=== PATIENT | female | born 1960 | race Caucasian/White ===

== ENCOUNTER 2018-01-18 23:45 | Emergency (ER) | payer OTHER ==
[2018-01-19] MEDS ORDERED: HYDROcodone/APAP 5-325MG 1 EACH TAB PO STA (01:01)
[2018-01-19 01:14] LABS: Glucose,Whole Blood 237 mg/dL (75-99)
--- NOTE | 2018-01-19 01:21 | XR ---
EXAMINATION TYPE: XR elbow complete LT DATE OF EXAM: 01/19/2018 COMPARISON: NONE HISTORY: Fall TECHNIQUE: 3 views FINDINGS: There is anterior and posterior fat pad sign indicating a joint effusion. I see no displace d fracture. Joint spaces are normal. IMPRESSION: Elbow joint effusion. No displaced fracture seen.
--- NOTE | 2018-01-19 02:01 | ED ---
Fall HPI - General Chief Complaint: Fall Stated Complaint: Fall-Shoulder Injury Time Seen by Provider: 01/19/18 00:21 Source: patient Mode of arrival: ambulatory - History of Present Illness Initial Comments: 58-year-old female patient presents to the emergency department today for complaints of left elbow pain after experiencing a fall at home. Patient reports that she was taking her dog out when the dog spotted a creature in the [place] and jumped forward, states that it pulled her forward and she fell landing on her chest. She states that she did have the wind knocked out of her for short time, states that she rolled onto her side to breathe easier and passed out for an unknown amount of time. Patient states that she didn't feel like it was very long. She denies hitting her head. She denies any current chest pain, shortness of breath, nausea, or vomiting. She denies any headache, dizziness, weakness, blurred vision, or double vision. States that she has been ill over the last 3 days with vomiting and diarrhea. States that symptoms have resolved. Her only concern at this time is the pain in her left elbow. States that she is unable to fully extend the arm without significant pain. Patient denies any neck pain, back pain, abdominal pain, or difficulties with bowel movements or urination. - Related Data Home Medications Medication Instructions Recorded Confirmed Etanercept [Enbrel] 50 mg SQ BENITEZ 11/17/15 07/27/16 Insulin Glargine,Hum.rec.anlog 14 unit SQ QAM 11/17/15 07/27/16 [Lantus Solostar] Lisinopril [Zestril] 20 mg PO BID 11/17/15 07/27/16 Metoprolol Tartrate [Lopressor] 100 mg PO BID 11/17/15 07/27/16 Repaglinide [Prandin] 2 mg PO AC-LUNCH 11/17/15 07/27/16 Insulin Glargine,Hum.rec.anlog 18 unit SQ HS 07/27/16 07/27/16 [Lantus Solostar] Levothyroxine Sodium [Synthroid] 100 mcg PO DAILY 07/27/16 07/27/16 Naproxen Sodium [Aleve] 440 mg PO DAILY PRN 07/27/16 07/27/16 Repaglinide [Prandin] 1 mg PO BID 07/27/16 07/27/16 Saxagliptin HCl/Metformin HCl 1 tab PO DAILY 07/27/16 07/27/16 [Kombiglyze Xr 5-1,000 mg Tab] Previous Rx's Medication Instructions Recorded Hydrocodone/Acetaminophen [[place] 1 tab PO Q6HR PRN #12 tab 01/19/18 5-325] Allergies Allergy/AdvReac Type Severity Reaction Status Date / Time Iodinated Contrast- Oral and Allergy Dyspnea Verified 01/19/18 00:05 IV Dye [Iodinated Contrast Media - IV Dye] shellfish derived [Shellfish] Allergy Dyspnea Verified 01/19/18 00:05 Sulfa (Sulfonamide Allergy Rash/Hives Verified 01/19/18 00:05 Antibiotics) levofloxacin [From Levaquin] AdvReac Tendon pain Verified 01/19/18 00:05 Review of Systems ROS Statement: Those systems with pertinent positive or pertinent negative responses have been documented in the HPI. ROS Other: All systems not noted in ROS Statement are negative. Past Medical History Past Medical History: Asthma, Diabetes Mellitus, Fibromyalgia, Hypertension, Pneumonia, Renal Disease, Rheumatoid Arthritis (RA) Additional Past Medical History / Comment(s): IDDM type II, hypothyroid, slight heart enlargement, murmur, nephrolithiasis, UTI in past. History of Any Multi-Drug Resistant Organisms: None Reported Past Surgical History: Cholecystectomy, Hysterectomy Additional Past Surgical History / Comment(s): L salpingo-oophorectomy, hysterectomy later with R salpingo-oophorectomy, parathyroidectomy Past Anesthesia/Blood Transfusion Reactions: Postoperative Nausea & Vomiting ( PONV) Past Psychological History: Anxiety Smoking Status: Never smoker Past Alcohol Use History: None Reported Past Drug Use History: None Reported - Past Family History Brother(s) Family Medical History: Myocardial Infarction ([place]) Additional Family Medical History / Comment(s): Brother of a [place] at the age of 54 yrs. Sister(s) Family Medical History: Myocardial Infarction ([place]) Additional Family Medical History / Comment(s): Sister had a [place] at the age of 54 yrs. Father Family Medical History: COPD Additional Family Medical History / Comment(s): Father of emphysema at the age of 60 yrs. Mother Family Medical History: Cancer Additional Family Medical History / Comment(s): Mother of a cancerous brain tumor at the age of 64 yrs. General Exam Limitations: no limitations General appearance: alert, in no apparent distress, other (This is a well- developed, obese female patient in no acute distress. Vital signs upon presentation are temperature 99.5F, pulse 80, respirations 20, blood pressure 144/74, pulse ox 99% on room air) Head exam: Present: atraumatic, normocephalic, normal inspection Eye exam: Present: normal appearance, PERRL, EOMI. Absent: scleral icterus, conjunctival injection, periorbital swelling ENT exam: Present: normal exam, normal oropharynx, mucous membranes moist Neck exam: Present: normal inspection, full ROM, other (Nontender, no step-off, no deformity to firm midline palpation of the posterior cervical spine. Full range of motion without pain or limitation.). Absent: tenderness, meningismus, lymphadenopathy Respiratory exam: Present: normal lung sounds bilaterally. Absent: respiratory distress, wheezes, rales, rhonchi, stridor, chest wall tenderness Cardiovascular Exam: Present: regular rate, normal rhythm, normal heart sounds. Absent: systolic murmur, diastolic murmur, rubs, gallop, clicks GI/Abdominal exam: Present: soft, normal bowel sounds. Absent: distended, tenderness, guarding, rebound, rigid Extremities exam: Present: tenderness (Tenderness over the left elbow), normal capillary refill, other (Swelling surrounding the left elbow. Patient is unable to pronate or supinate without significant pain.). Absent: normal inspection, full ROM (Patient unable to pronate or supinate without significant pain), pedal edema, joint swelling, calf tenderness Back exam: Present: normal inspection, other (Nontender, no step-off, no deformity to firm midline palpation of the thoracic and lumbar vertebrae. Full range of motion without pain or limitation.). Absent: tenderness, vertebral tenderness Neurological exam: Present: alert, oriented X3, CN II-XII intact Psychiatric exam: Present: normal affect, normal mood Skin exam: Present: warm, dry, intact, normal color. Absent: rash Course Vital Signs 01/18/18 01/19/18 23:59 02:14 Temperature 99.5 F 98.3 F Pulse Rate 80 73 Respiratory 20 18 Rate Blood Pressure 144/74 105/66 O2 Sat by Pulse 99 96 Oximetry Medical Decision Making - Medical Decision Making 58-year-old female patient presents to the emergency department today for evaluation of left elbow pain after a fall. Patient also reported having a syncopal episode after the fall. Blood sugar here was 237, patient is a type II diabetic. EKG was obtained and showed a normal sinus rhythm with no ectopy or ST elevation or depression. Patient is neurologically intact. Patient reports that she is feeling well other than her elbow pain. X-ray of the left elbow shows posterior and anterior fat pad sign. There is no obvious fracture. I did discuss results with the patient and informed her this most likely a occult fracture of the left elbow. We did place her in a posterior splint and give her a sling. I gave her [place] for pain control per she is instructed to follow-up with orthopedics as soon as possible. She is instructed to return here immediately for any new, worsening, or concerning symptoms. She verbalizes understanding and agrees with this plan. - Lab Data Lab Results 01/19/18 Range/Units 01:10 POC Glucose (mg/dL) 237 H (75-99) mg/dL POC Glu [employer] Machine ID Aurelia Escalona - EKG Data -: EKG Interpreted by Me EKG Comments: EKG obtained at was normal sinus rhythm with a ventricular rate of 69, AL interval 168, QR gnosticist 92, QT 406, QTC 435. No evidence of ectopy, ST elevation or depression. - Radiology Data Radiology results: report reviewed, image reviewed 3 views of left elbow show anterior and posterior fat pad signs indicating a joint effusion. I see no displaced fracture. Joint spaces are normal. Impression by Dr. Knox shows elbow joint effusion. No displaced fracture seen. Disposition Clinical Impression: Occult fracture of left elbow Disposition: HOME SELF-CARE Condition: Good Instructions: Elbow Fracture (ED), Splint Care (ED) Additional Instructions: Use sling for comfort. Ice to the area 20 minutes at a time at least 4 times daily. Follow-up with orthopedics as as possible, leave splint in place until follow up. Do not get splint wet. Take medications as directed. Return here immediately for any new, worsening, or concerning symptoms. Prescriptions: Hydrocodone/Acetaminophen [[place] 5-325] 1 tab PO Q6HR PRN #12 tab PRN Reason: Pain Referrals: Sunny Singh MD [Primary Care Provider] - 1-2 days Makim,Mukund, MD [STAFF PHYSICIAN] - 1-2 days Time of Disposition: 02:00
[2018-01-19 02:17] VITALS: BP 105/66; PULSE 73; RESP 18; TEMP 98.3
== END 2018-01-19 02:16 | disposition home or self-care (01) ==
LOC: EC 23:45
DX: S42.402A Unspecified fracture of lower end of left humerus, initial encounter for closed fracture (principal); E11.9 Type 2 diabetes mellitus without complications; I10 Essential (primary) hypertension; M06.9 Rheumatoid arthritis, unspecified; E03.9 Hypothyroidism, unspecified; E66.9 Obesity, unspecified; Z91.041 Radiographic dye allergy status; Z68.34 Body mass index [BMI] 34.0-34.9, adult; Z88.2 Allergy status to sulfonamides; Z88.1 Allergy status to other antibiotic agents; Z91.013 Allergy to seafood; Z79.4 Long term (current) use of insulin; Z79.84 Long term (current) use of oral hypoglycemic drugs; Z79.899 Other long term (current) drug therapy; W54.1XXA Struck by dog, initial encounter; Y92.009 Unspecified place in unspecified non-institutional (private) residence as the place of occurrence of the external cause
CPT/HCPCS: 29105; 36415; 93005; 99284

== ENCOUNTER 2020-09-01 21:43 | Emergency (ER) | payer BC, OTHER ==
[2020-09-01 21:51] VITALS: BP 152/81; PULSE 91; RESP 20; TEMP 100
[2020-09-01] MEDS ORDERED: LIDOCAINE 5% PATCH TOPICAL STA ×2 (22:21→23:13)
[2020-09-01] MEDS ORDERED: KETOROLAC 15 MG/ML 1 ML VIAL IM STA (22:21)
--- NOTE | 2020-09-01 22:57 | XR ---
EXAMINATION TYPE: XR ribs RT w pa chest xray DATE OF EXAM: 09/01/2020 COMPARISON: Chest x-ray 07/27/2016 HISTORY: Right rib pain TECHNIQUE: 5 views FINDINGS: Heart and mediastinum are normal. Lungs are clear. There is no pleural effusion or pneumoth orax. I see no evidence of a rib fracture. IMPRESSION: No active cardiopulmonary disease. Normal right ribs. No change.
--- NOTE | 2020-09-01 23:14 | ED ---
General Adult HPI - General Chief complaint: Chest Pain Stated complaint: [facility] Rib Injury Time Seen by Provider: 09/01/20 21:59 Source: patient Mode of arrival: ambulatory Limitations: no limitations - History of Present Illness Initial comments: 60-year-old female patient presents to the emergency department today for evaluation of right-sided rib pain. Patient states 3 days ago at work she was bent forward over a table when she felt a popping sensation in the right ribs. Patient states she did have mild discomfort at that time. Patient states that she reinjured it yesterday while bending over to pick something up off the floor and when she laid down in bed tonight the pain got significantly worse. She denies any radiation of the pain through to her back. States it does hurt worse when she takes a deep breath or moves. If she denies any nausea, vomiting, constipation, diarrhea. Denies any dizziness or weakness. States she has been taking Aleve. Patient denies any headache, neck pain, back pain, shortness of breath, dizziness, weakness, abdominal pain, or difficulties with bowel movements or urination. - Related Data Home Medications Medication Instructions Recorded Confirmed Etanercept [Enbrel] 50 mg SQ BENITEZ 11/17/15 07/27/16 Insulin Glargine,Hum.rec.anlog 14 unit SQ QAM 11/17/15 07/27/16 [Lantus Solostar] Metoprolol Tartrate [Lopressor] 100 mg PO BID 11/17/15 07/27/16 Repaglinide [Prandin] 2 mg PO AC-LUNCH 11/17/15 07/27/16 lisinopriL [Zestril] 20 mg PO BID 11/17/15 07/27/16 Insulin Glargine,Hum.rec.anlog 18 unit SQ HS 07/27/16 07/27/16 [Lantus Solostar] Levothyroxine Sodium [Synthroid] 100 mcg PO DAILY 07/27/16 07/27/16 Naproxen Sodium [Aleve] 440 mg PO DAILY PRN 07/27/16 07/27/16 Repaglinide [Prandin] 1 mg PO BID 07/27/16 07/27/16 Saxagliptin HCl/Metformin HCl 1 tab PO DAILY 07/27/16 07/27/16 [Kombiglyze Xr 5-1,000 mg Tab] Previous Rx's Medication Instructions Recorded Hydrocodone/Acetaminophen [[place] 1 tab PO Q6HR PRN #12 tab 01/19/18 5-325] Allergies Allergy/AdvReac Type Severity Reaction Status Date / Time Iodinated Contrast Media Allergy Dyspnea Verified 09/01/20 21:51 [Iodinated Contrast Media - IV Dye] shellfish derived [Shellfish] Allergy Dyspnea Verified 09/01/20 21:51 Sulfa (Sulfonamide Allergy Rash/Hives Verified 09/01/20 21:51 Antibiotics) levofloxacin [From Levaquin] AdvReac Tendon pain Verified 09/01/20 21:51 Review of Systems ROS Statement: Those systems with pertinent positive or pertinent negative responses have been documented in the HPI. ROS Other: All systems not noted in ROS Statement are negative. Past Medical History Past Medical History: Asthma, Diabetes Mellitus, Fibromyalgia, Hypertension, Pneumonia, Renal Disease, Rheumatoid Arthritis (RA) Additional Past Medical History / Comment(s): IDDM type II, hypothyroid, slight heart enlargement, murmur, nephrolithiasis, UTI in past. History of Any Multi-Drug Resistant Organisms: None Reported Past Surgical History: Cholecystectomy, Hysterectomy Additional Past Surgical History / Comment(s): L salpingo-oophorectomy, hysterectomy later with R salpingo-oophorectomy, parathyroidectomy Past Anesthesia/Blood Transfusion Reactions: Postoperative Nausea & Vomiting (PONV) Past Psychological History: Anxiety Smoking Status: Never smoker Past Alcohol Use History: None Reported Past Drug Use History: None Reported - Past Family History Brother(s) Family Medical History: Myocardial Infarction ([place]) Additional Family Medical History / Comment(s): Brother of a [place] at the age of 54 yrs. Sister(s) Family Medical History: Myocardial Infarction ([place]) Additional Family Medical History / Comment(s): Sister had a [place] at the age of 54 yrs. Father Family Medical History: COPD Additional Family Medical History / Comment(s): Father of emphysema at the age of 60 yrs. Mother Family Medical History: Cancer Additional Family Medical History / Comment(s): Mother of a cancerous brain tumor at the age of 64 yrs. General Exam Limitations: no limitations General appearance: alert, in no apparent distress, other (Physical well- developed, well-nourished adult female patient in no acute distress. Vital signs upon presentation are temperature 100.0F. Pulse 91, respirations 20, blood pressure 152/81, pulse ox 95% on room air.) Respiratory exam: Present: normal lung sounds bilaterally, chest wall tenderness (Right anterior rib tenderness over the midclavicular region extending to the right midaxillary region.). Absent: respiratory distress, wheezes, rales, rhonchi, stridor Cardiovascular Exam: Present: regular rate, normal rhythm, normal heart sounds. Absent: systolic murmur, diastolic murmur, rubs, gallop, clicks GI/Abdominal exam: Present: soft, normal bowel sounds. Absent: distended, tenderness, guarding, rebound, rigid Neurological exam: Present: alert, oriented X3, CN II-XII intact Psychiatric exam: Present: normal affect, normal mood Skin exam: Present: warm, dry, intact, normal color. Absent: rash Course Vital Signs 09/01/20 21:48 Temperature 100 F H Pulse Rate 91 Respiratory 20 Rate Blood Pressure 152/81 O2 Sat by Pulse 95 Oximetry Medical Decision Making - Medical Decision Making 60-year-old female patient presents to the emergency department today for evaluation of right rib pain after an injury a few days ago at work. Physical examination did reveal tenderness over the right anterior ribs near the midaxillary line extending to the midclavicular line. There is no evidence for surface injury over the skin. No abdominal tenderness. Chest x-ray with right rib series was obtained and was negative for any acute fracture or abnormalities. We did discuss muscle strain as a cause for her symptoms. She is given Lidoderm patch. She is instructed to continue home medications for pain. She is reluctant to have any new prescriptions for pain. She is instructed to follow-up with her primary care physician for recheck in 1-2 days. Return parameters were discussed in detail patient verbalizes understanding and agrees with this plan. - Radiology Data Radiology results: report reviewed, image reviewed Disposition Clinical Impression: Rib injury Disposition: HOME SELF-CARE Condition: Good Instructions (If sedation given, give patient instructions): Muscle Strain (ED), Costochondritis (ED) Additional Instructions: Apply warm compresses to the area. Use Lidoderm patch as needed. Continue Aleve. Perform gentle stretching exercises. Follow-up with your primary care physician for recheck in 1-2 days. Return to the emergency department immediately for any new, worsening, or concerning symptoms. Is patient prescribed a controlled substance at d/c from ED?: No Referrals: Sunny Singh MD [Primary Care Provider] - 1-2 days Time of Disposition: 23:14
== END 2020-09-01 23:30 | disposition home or self-care (01) ==
LOC: EC 21:43
DX: S29.9XXA Unspecified injury of thorax, initial encounter (principal); I10 Essential (primary) hypertension; E11.9 Type 2 diabetes mellitus without complications; M06.9 Rheumatoid arthritis, unspecified; E03.9 Hypothyroidism, unspecified; Z79.84 Long term (current) use of oral hypoglycemic drugs; Z79.899 Other long term (current) drug therapy; Z79.4 Long term (current) use of insulin; Z79.890 Hormone replacement therapy; Z91.041 Radiographic dye allergy status; Z91.013 Allergy to seafood; Z88.2 Allergy status to sulfonamides; Z88.1 Allergy status to other antibiotic agents; X50.1XXA Overexertion from prolonged static or awkward postures, initial encounter; Y92.69 Other specified industrial and construction area as the place of occurrence of the external cause; Y99.0 Civilian activity done for income or pay
CPT/HCPCS: 71101; 99283; 96372; J1885

== ENCOUNTER → 2020-09-15 | Outpatient (CLI) | payer BC ==
[2020-09-15 13:33] LABS: Basophils # (A) 0.1 k/uL (0-0.2); Basophils % (A) 0 %; Eosinophils # (A) 0.4 k/uL (0-0.7); Eosinophils % (A) 4 %; HCT 46.2 % (34.0-46.0); HGB 14.8 gm/dL (11.4-16.0); Lymphocytes # (A) 2.1 k/uL (1.0-4.8); Lymphocytes % (A) 19 %; MCH 29.1 pg (25.0-35.0); Mean Platelet Volume 7.6; Monocytes # (A) 0.5 k/uL (0-1.0); Monocytes % (A) 4 %; Neutrophils # (A) 7.8 k/uL (1.3-7.7); Neutrophils % (A) 72 %; Platelet Count 235 k/uL (150-450); RBC 5.08 m/uL (3.80-5.40); RDW 13.8 % (11.5-15.5); WBC 10.9 k/uL (3.8-10.6)
[2020-09-15 18:32] LABS: Protein, Total 7.2 g/dL (6.2-8.2)
[2020-09-15 19:05] LABS: T4, Free (Free Thyroxine) 1.2 ng/dL (0.80-1.80)
[2020-09-15 19:22] LABS: African American GFR (CKD) 51.6 (60.0-200.0); Albumin 4.6 g/dL (3.80-4.90); Albumin/Globulin Ratio 1.77 (1.60-3.17); Anion Gap 10.8 mmol/L (4.00-12.00); BUN/Creat Ratio 19.23 Ratio (12.00-20.00); C Reactive Protein 0.4 mg/dL (0.0-0.8); Calcium 9.7 mg/dL (8.7-10.3); Carbon Dioxide 26.2 mmol/L (21.6-31.8); Chol/HDL Ratio 2.95; Folate, Serum 13.6 ng/mL; Globulin 2.6 g/dL (1.6-3.3); LDL Cholesterol,Calculated 23.8 mg/dL (0.0-131.0); Non-African American GFR(CKD) 44.6 (60.0-200.0); Potassium 4.7 mmol/L (3.5-5.5); Total Bilirubin 0.7 mg/dL (0.3-1.2); Total Protein 7.2 g/dL (6.2-8.2); VLDL Calculation 48.2 mg/dL (5.00-40.00)
[2020-09-16 15:07] LABS: Albumin 3.89 g/dL (3.80-4.90); Gamma Globulin 1.04 g/dL (0.70-1.50)
== END | disposition home or self-care (01) ==
LOC: LABWHC1 12:52
PROVIDERS: ATTEND Internal Medicine Endocrinology, Diabetes & Metabolism
DX: M06.4 Inflammatory polyarthropathy (principal); E11.65 Type 2 diabetes mellitus with hyperglycemia; E03.9 Hypothyroidism, unspecified; E78.49 Other hyperlipidemia
CPT/HCPCS: 36415; 80053; 80061; 82306; 82607; 82746; 83036; 84165; 84439; 84443; 85025; 86140; 86480

== ENCOUNTER → 2021-04-01 | Outpatient (CLI) | payer BC ==
[2021-04-01 15:25] LABS: Appearance,Urine Clear (Clear); Bacteria,Urine Rare /hpf; Bilirubin,Urine Negative (Negative); Blood,Urine Negative (Negative); Color,Urine Yellow; Glucose,Urine (UA) Trace (Negative); Ketones,Urine Negative (Negative); Leukocyte Esterase,Urine Small (Negative); Mucus,Urine Rare /hpf; Nitrite,Urine Negative (Negative); PH, Urine 5.5 (5.0-8.0); Protein,Urine 2+ (Negative); Specific Gravity,Urine 1.024 (1.001-1.035); Squamous Epithelial Cell,Urine 1 /hpf (0-4); Urobilinogen,Urine <2.0 mg/dL (<2.0); WBC,Urine 2 /hpf (0-5)
[2021-04-02 01:13] LABS: Basophils # (A) 0.08 X 10*3/uL (0.00-0.10); Basophils % (A) 0.8 %; Eosinophils # (A) 0.37 X 10*3/uL (0.04-0.35); Eosinophils % (A) 3.6 %; HCT 45.1 % (37.2-46.3); HGB 14.3 g/dL (12.0-15.0); Lymphocytes # (A) 3.13 X 10*3/uL (0.90-5.00); Lymphocytes % (A) 30.4 %; MCHC 31.7 g/dL (32.0-37.0); MCV 91.5 fL (80.0-97.0); Mean Platelet Volume 10.9 fL (9.5-12.2); Monocytes # (A) 0.64 X 10*3/uL (0.20-1.00); Monocytes % (A) 6.2 %; Neutrophils # (A) 6.04 X 10*3/uL (1.80-7.70); Neutrophils % (A) 58.6 %; Platelet Count 292 X 10*3/uL (140-440); RBC 4.93 X 10*6/uL (4.10-5.20); RDW 13.5 % (11.5-14.5)
[2021-04-02 02:01] LABS: Hemoglobin A1C 8.1 % (4.0-6.0)
[2021-04-02 02:02] LABS: Erythrocyte Sedimentation Rate 7 mm/Hr (0-30)
[2021-04-02 23:55] LABS: ALT 58 U/L (8-44); AST 59 U/L (13-35); African American GFR (CKD) 92.2 (60.0-200.0); Albumin/Globulin Ratio 2.04 (1.60-3.17); Alkaline Phosphatase 53 U/L (41-126); C Reactive Protein <0.4 mg/dL (0.0-0.8); Calcium 8.7 mg/dL (8.7-10.3); Carbon Dioxide 15.8 mmol/L (21.6-31.8); Chloride 105 mmol/L (96-109); Chol/HDL Ratio 3.59; Cholesterol 115 mg/dL (0-200); Globulin 2.4 g/dL (1.6-3.3); Glucose 286 mg/dL (70-110); LDL Cholesterol,Calculated 19.2 mg/dL (0.0-131.0); Non-African American GFR(CKD) 79.6 (60.0-200.0); Potassium 4.6 mmol/L (3.5-5.5); Sodium 145 mmol/L (135-145); Total Bilirubin 0.6 mg/dL (0.3-1.2); Total Protein 7.3 g/dL (6.2-8.2)
== END | disposition home or self-care (01) ==
LOC: LABWHC1 14:45
PROVIDERS: ATTEND Internal Medicine Rheumatology
DX: E78.5 Hyperlipidemia, unspecified (principal); E11.65 Type 2 diabetes mellitus with hyperglycemia; I10 Essential (primary) hypertension; M06.09 Rheumatoid arthritis without rheumatoid factor, multiple sites
CPT/HCPCS: 36415; 80053; 80061; 81001; 82306; 83036; 84439; 84443; 85025; 85652; 86140; 87086

== ENCOUNTER → 2022-05-10 | Outpatient (CLI) | payer BC ==
--- NOTE | 2022-05-10 10:47 | US ---
EXAMINATION TYPE: US liver DATE OF EXAM: 05/10/2022 COMPARISON: NONE CLINICAL HISTORY: R74.8 ELEVATED LIVER ENZYMES. Cholecystectomy in 1999. EXAM MEASUREMENTS: Liver Length: 18.2 cm Gallbladder Wall: Surgically absent cm CBD: 0.53 cm Right Kidney: 13.1 x 6.0 x 6.0 cm Pancreas: partially obscured by bowel gas Liver: Increased attenuation, decreased visualization of vessels suggestive of fatty infiltrate Gallbladder: Surgically absent Evidence for sonographic Roche's sign: No CBD: wnl Right Kidney: Soft tissue area seen in mid renal sinus representing probable normal tissue, however, mass can not be excluded by ultrasound. IMPRESSION: 1. Probable hepatic steatosis. 2. I cannot exclude right renal sinus mass. Consider CT correlation.
[2022-05-10 17:53] LABS: Basophils # (A) 0.08 X 10*3/uL (0.00-0.10); Basophils % (A) 0.7 %; Eosinophils # (A) 0.44 X 10*3/uL (0.04-0.35); Eosinophils % (A) 3.7 %; HCT 48.1 % (37.2-46.3); Immature Grans, Automated 0.3 %; Lymphocytes # (A) 2.94 X 10*3/uL (0.90-5.00); Lymphocytes % (A) 24.5 %; MCH 28.2 pg (27.0-32.0); MCHC 31.2 g/dL (32.0-37.0); MCV 90.4 fL (80.0-97.0); Mean Platelet Volume 10.4 fL (9.5-12.2); Monocytes # (A) 0.59 X 10*3/uL (0.20-1.00); Monocytes % (A) 4.9 %; NRBC Per 100 WBC 0 /100 WBCS (0.0-0.0); Neutrophils % (A) 65.9 %; Platelet Count 326 X 10*3/uL (140-440); RBC 5.32 X 10*6/uL (4.10-5.20); RDW 13.3 % (11.5-14.5); WBC 11.99 X 10*3/uL (4.50-10.00)
[2022-05-10 18:20] LABS: Hepatitis A Antibody IgM Nonreactive (Nonreactive); Hepatitis B Core IgM Nonreactive (Nonreactive); Hepatitis B Surface Antigen Nonreactive (Nonreactive); Hepatitis C IgG Antibody Nonreactive (Nonreactive)
[2022-05-10 19:21] LABS: ALT 51 U/L (8-44); AST 50 U/L (13-35); Albumin 4.5 g/dL (3.8-4.9); Albumin/Globulin Ratio 1.44 (1.60-3.17); Alkaline Phosphatase 55 U/L (41-126); BUN/Creat Ratio 21.82 Ratio (12.00-20.00); Blood Urea Nitrogen 16.1 mg/dL (9.0-27.0); Calcium 9.2 mg/dL (8.7-10.3); Carbon Dioxide 21.2 mmol/L (20.0-27.5); Chloride 99 mmol/L (96-109); Chol/HDL Ratio 2.98 Ratio; Globulin 3.2 g/dL (1.6-3.3); Glucose 245 mg/dL (70-110); LDL Cholesterol,Calculated 46.7 mg/dL (0.0-131.0); Non-African American GFR(CKD) 87.1 (60.0-200.0); Potassium 4.6 mmol/L (3.5-5.5); Sodium 136 mmol/L (135-145); Total Protein 7.7 g/dL (6.2-8.2)
== END | disposition home or self-care (01) ==
LOC: RADUSWWP 09:37
PROVIDERS: ATTEND Internal Medicine
DX: R74.8 Abnormal levels of other serum enzymes (principal); E11.69 Type 2 diabetes mellitus with other specified complication
CPT/HCPCS: 76705; 80053; 80061; 80074; 82306; 83036; 84439; 84443; 85025

== ENCOUNTER → 2022-05-21 | Outpatient (CLI) | payer BC ==
--- NOTE | 2022-05-21 13:10 | FL ---
Sniff test HISTORY: J 18.9 Real-time evaluation of the hemidiaphragms performed under fluoroscopy. 1.12 minutes fluoroscopy time. 1 image obtained documenting the procedure Right hemidiaphragm appeared to be slow to respond on evocative procedures. Clear paradoxical motion was not identified during the exam. Right hemidiaphragm is elevated in comparison to the left. IMPRESSION: Elevation of right hemidiaphragm, there may be partial paresis, there is eventration of t he right hemidiaphragm
--- NOTE | 2022-05-21 16:34 | CT ---
EXAMINATION TYPE: CT ChestAbdPelvis w con CT DLP: 2329.6 mGycm, Automated exposure control for dose reduction was used. DATE OF EXAM: 05/21/2022 12:01 PM COMPARISON: CT chest 08/07/2010. LIVER 05/10/2022 CLINICAL INDICATION:Female, 62 years old with history of J18.9 PNEUMONIA N28.89 DISORDER OF KIDNEY AN D URETER, Pneumonia, Rt renal mass Technique: Multiple axial images of the chest, abdomen, and pelvis were obtained following the intrav enous administration of 100 mL Isovue-300. Two-dimensional coronal and sagittal reconstructions were obtained. Findings: CHEST: LUNGS/ PLEURA: No evidence of focal consolidation, pneumothorax or pleural effusion. AIRWAY: Patent and unremarkable. HEART: The heart is mildly enlarged for size. There is moderate atherosclerosis of the coronary arter ies. MEDIASTINUM: No gross evidence of adenopathy. VASCULATURE: No aortic aneurysm. MUSCULOSKELETAL: No acute osseous abnormalities. SOFT TISSUES/LYMPH NODES: Unremarkable. LOWER NECK: No significant findings. ABDOMEN: ABDOMEN LIVER: Diffusely hypoattenuating parenchyma. There is superimposed geographic areas of L2 lower densi ty seen within the bilateral hepatic lobes. This is most pronounced in the left hepatic lobe and righ t hepatic dome. GALLBLADDER AND BILE DUCTS: The gallbladder is surgically absent. PANCREAS: Unremarkable. SPLEEN: Unremarkable. ADRENAL GLANDS: Left adrenal indeterminate nodule measuring 17 mm. The right adrenal glands unremarka ble. KIDNEYS AND URETERS: Soft tissue seen within the renal sinus correlates with normal appearing renal t issue. No mass identified. No evidence of hydronephrosis or renal calculus. The ureters are unremarkable. PELVIS BLADDER: Unremarkable REPRODUCTIVE: Unremarkable. ABDOMEN & PELVIS STOMACH AND BOWEL: Few scattered clonic diverticula present. No evidence of bowel obstruction. Append ix is normal. PERITONEUM: No evidence of pneumoperitoneum or free fluid. VASCULATURE: No evidence of aortic aneurysm. MUSCULOSKELETAL: No evidence for acute process. There is multilevel disc degeneration changes through out the spine. LYMPH NODES: No gross evidence for lymphadenopathy. SOFT TISSUE/ABDOMINAL WALL: Unremarkable IMPRESSION: 1. Right renal sinus soft tissue seen on ultrasound correlates with renal parenchyma. No mass identi fied. 2. No evidence for pneumonia or acute thoracic process. 3. Hepatic steatosis with geographic areas of ill-defined lower density. This could represent focal areas of superimposed geographic fat deposition. 4. Indeterminate left adrenal nodule measuring 17 mm. In absence of risk factors this is statistical ly likely to represent benign lipid rich adenoma. This can be further evaluated with CT or MRI adrena l mass protocol for confirmation if clinically necessary. 5. Colonic diverticulosis.
== END | disposition home or self-care (01) ==
LOC: RADUSWWP 09:21
PROVIDERS: ATTEND Internal Medicine Critical Care Medicine
DX: J18.9 Pneumonia, unspecified organism (principal); N28.89 Other specified disorders of kidney and ureter; K76.0 Fatty (change of) liver, not elsewhere classified; K57.30 Diverticulosis of large intestine without perforation or abscess without bleeding
CPT/HCPCS: 82565; 84520; 76000; 71260; 74177; 36415; Q9967

== ENCOUNTER 2022-07-09 08:50 | Day surgery (SDC) | payer BC ==
[2022-07-07 11:59] VITALS: BMI 37.1
[~2022-07-09 08:50] MED LIST: LACTATED RINGERS 1,000 ML IV SCH; LIDOCAINE 1% (10MG/ML) FOR IV START INTRADERMA PRN
[2022-07-09 09:31] VITALS: TEMP 97.2
[2022-07-09 09:33] LABS: Glucose,Whole Blood 150 mg/dL (70-110)
[2022-07-09] MEDS ORDERED: LIDOCAINE 2% INJ 20 MG/ML (2 ML VIAL) ONE (10:45)
[2022-07-09] MEDS ORDERED: PROPOFOL 10 MG/ML 20 ML VIAL IV ONE (10:45)
--- NOTE | 2022-07-09 11:01 | P.PCN ---
Date of Procedure: 07/09/22 Procedure(s) Performed: BRIEF HISTORY: Patient is a 62-year-old pleasant female scheduled for an elective colonoscopy as a part of evaluation of intermittent rectal bleeding for the last 1 year duration. PROCEDURE PERFORMED: Colonoscopy with snare polypectomy. PREOPERATIVE DIAGNOSIS: Intermittent rectal bleeding. IV sedation per Anesthesia. PROCEDURE: After informed consent was obtained, the patient, was brought into the endoscopy unit. IV sedation was administered by Anesthesia under continuous monitoring. Digital rectal examination was normal. Initially the Olympus CF-160 flexible video colonoscope was then inserted in the rectum, gradually advanced into the cecum without any difficulty. Careful examination was performed as the scope was gradually being withdrawn. Ileocecal valve and the appendiceal orifice were visualized and appeared normal. Prep was excellent. Mucosa of the cecum, ascending colon, transverse colon, descending colon, sigmoid colon, and rectum appeared normal. Retroflexion was performed in the rectum and 3 polyps measuring between 5 mm and 1 cm in size noted on the dentate line and easily removed by snare polypectomy. Small internal hemorrhoids were also seen.. The patient tolerated the procedure well. IMPRESSION: 5 mm, 6 mm and 1 cm anal polyps status post polypectomy Scattered diverticulosis Small internal hemorrhoids. RECOMMENDATIONS: Findings of this examination were discussed with the patient as well as her family. She was advised to follow with the biopsy results. She'll be a high-fiber diet and fiber supplements a regular basis and avoid straining and constipation..
[2022-07-09 11:26] VITALS: BP 146/78; PULSE 85; RESP 16
== END 2022-07-09 11:40 | disposition home or self-care (01) ==
LOC: ORWHC2ENDO 08:50
PROVIDERS: ATTEND Internal Medicine Gastroenterology
DX: K63.5 Polyp of colon (principal); K64.8 Other hemorrhoids; K62.5 Hemorrhage of anus and rectum; I10 Essential (primary) hypertension; J45.909 Unspecified asthma, uncomplicated; E07.9 Disorder of thyroid, unspecified; E11.9 Type 2 diabetes mellitus without complications; N28.9 Disorder of kidney and ureter, unspecified; M79.7 Fibromyalgia; M06.9 Rheumatoid arthritis, unspecified; Z79.890 Hormone replacement therapy; Z79.4 Long term (current) use of insulin; Z79.899 Other long term (current) drug therapy; Z88.2 Allergy status to sulfonamides; Z91.048 Other nonmedicinal substance allergy status; Z88.1 Allergy status to other antibiotic agents; Z91.013 Allergy to seafood
CPT/HCPCS: 88305; 45385; J2704; J2001

== ENCOUNTER → 2024-09-07 | Outpatient (CLI) | payer BC ==
--- NOTE | 2024-09-07 14:48 | US ---
EXAMINATION TYPE: US kidneys/renal and bladder DATE OF EXAM: 09/07/2024 COMPARISON: CT 2021 CLINICAL INDICATION: Female, 64 years old with history of R94.4 Decreased GFR; TECHNIQUE: Grayscale and color Doppler imaging of the bilateral kidneys and urinary bladder: FINDINGS: EXAM MEASUREMENTS: Right Kidney: 11.8 x 5.7 x 6.4 cm Left Kidney: 10.5 x 5.0 x 6.2 cm Right Kidney: No hydronephrosis or masses seen Left Kidney: 1.1cm cortical cyst Bladder: not fully distended, appears wnl as seen Bilateral Jets seen: yes There is no evidence for hydronephrosis at this point in time. No nephrolithiasis is seen. The urin sunny bladder is anechoic. Bilateral ureteral jets are seen. IMPRESSION: Simple renal cortical cyst left kidney. [facility], , 09/07/2024 2:46 PM
== END | disposition home or self-care (01) ==
LOC: RADUSWWP 13:17
PROVIDERS: ATTEND Internal Medicine
CPT/HCPCS: 76770